=== PATIENT | female | born 1995 | race Caucasian/White ===

== ENCOUNTER 2019-09-10 12:08 | Outpatient (CLI) | payer BC ==
--- NOTE | 2019-09-10 14:21 | RAD ---
LEFT KNEE: 09/10/19 Three views. HISTORY: Knee pain. Joint spaces are preserved. No fracture or osseous abnormality. No joint effusion. IMPRESSION: Unremarkable left knee. POS: [facility]
== END 2019-09-10 12:09 | disposition home or self-care (01) ==
LOC: BICRAD 12:08
PROVIDERS: ATTEND Family Medicine
DX: M25.562 Pain in left knee (principal)

== ENCOUNTER 2020-02-04 06:46 | Outpatient (CLI) | payer OTHER ==
[2020-02-04 15:41] LABS: BHCG - Serum Negative (NEGATIVE); Pregs Control Background? CLEAR/WHITE (CLR/WHITE); Pregs Control Bar Appear? YES (CONTROL BAR)
[2020-02-05 08:27] LABS: SARS-CoV-2 MS2 Positive; SARS-CoV-2 N Gene Negative; SARS-CoV-2 S Gene Negative; SARS-CoV-2 by NAA Not Detected (NotDetected); SARS-CoV-2 orf1ab Negative
== END 2020-02-04 06:47 | disposition home or self-care (01) ==
LOC: LABBT 06:46
PROVIDERS: ATTEND Orthopaedic Surgery
DX: Z01.812 Encounter for preprocedural laboratory examination (principal); Z20.828 Contact with and (suspected) exposure to other viral communicable diseases; M79.89 Other specified soft tissue disorders
CPT/HCPCS: 84703; 87635; U0003

== ENCOUNTER 2020-02-09 06:00 | Day surgery (SDC) | payer OTHER ==
--- NOTE | 2020-02-08 08:56 | HP ---
HISTORY OF PRESENT ILLNESS: The patient is a 24-year-old female with a 1-year history of a gradually increasing mass over the anterior aspect of her left knee without injury. She has persistent symptoms despite rest, restriction of activities, and attempted previous aspiration. PAST MEDICAL HISTORY: The patient is otherwise in good health. She has a history of anxiety, depression, and asthma. CURRENT MEDICATIONS: Include, 1. Albuterol p.r.n. 2. Wellbutrin. 3. control. FAMILY HISTORY: Otherwise unremarkable. SOCIAL HISTORY: Otherwise unremarkable. REVIEW OF SYSTEMS: Otherwise unremarkable. ALLERGIES: SHE HAS NO KNOWN ALLERGIES. PHYSICAL EXAMINATION: GENERAL: Reveals a healthy female. HEENT: Unremarkable. NECK: Supple. CHEST: Clear. HEART: Regular rate and rhythm. ABDOMEN: Soft and nontender. PELVIC: Deferred. RECTAL: Deferred. BREASTS: Deferred. EXTREMITIES: Pertinent findings related to the left knee. There is no effusion, warmth, or erythema. There is a 2 x 1.5 cm nodule over the anterolateral patellar area, which is soft. There is some questionable fluctuance. There is minimal tenderness. There is full range of motion. No crepitus or instability. Neurovascular exam is intact. DIAGNOSTIC STUDIES: X-rays of the left knee are normal. MRI scan of the left knee reveals a circumcised benign-appearing solid heterogeneously enhancing mass in the superficial soft tissues contacting the lateral patellar tendon without evidence of deep extension. IMPRESSIONS: Soft tissue mass, left knee. PLAN: Surgical excision. The nature of the surgery, length of recovery, and potential complications such as infection, loss of motion, incomplete relief, neurovascular injury, thromboembolic phenomena, recurrence, and need for additional treatment, and repeat surgery have been discussed in detail. Job ID: [id number]
[2020-02-08 09:37] VITALS: BMI 26.5
[2020-02-09] MEDS ORDERED: Fentanyl 100 MCG/2 ML VIAL ONE (06:41)
[2020-02-09] MEDS ORDERED: Lidocaine 1% w/Epinephrine 1:100K 20 ML VIAL ONE (07:29)
[2020-02-09] MEDS ORDERED: Bupivacaine PF 0.5% 30 ML VIAL ONE (07:29)
[2020-02-09] MEDS ORDERED: Meperidine HCl/PF 25 MG/ML VIAL ONE (08:19)
--- NOTE | 2020-02-09 09:33 | OP ---
DATE OF PROCEDURE: 02/09/2020 ANESTHESIA: General. PREOPERATIVE DIAGNOSIS: Soft tissue mass, left knee. POSTOPERATIVE DIAGNOSIS: Soft tissue mass, left knee. PROCEDURE PERFORMED: Excision of soft tissue mass, left knee. Pathology pending. OPERATIVE FINDINGS: There was a semi-loculated cystic structure superficial to the patellar tendon. It appeared to be benign and was sent to pathology. DESCRIPTION OF PROCEDURE: After satisfactory anesthesia was induced in a supine position, the patient was prepped and draped in the routine manner. The left leg was elevated and exsanguinated with an Esmarch bandage and the tourniquet inflated to 250 mmHg. A 2.5 cm enlarged incision was made over the mass, carried down through the subcutaneous tissues. Bleeding points were controlled with cautery. Using sharp and blunt dissection, the mass was identified and excised in its entirety. There was a superficial patellar tendon that did not involve the joint. The specimen was sent to pathology. The wound was thoroughly irrigated. A mixture of 30 mL of 0.5% plain Marcaine and 20 mL of 1% lidocaine with epinephrine was prepared and 10 mL of this was injected about the incision. An additional 10 mL was used to irrigate the wound. The subcutaneous tissues were then closed with interrupted 2-0 Monocryl and the skin was closed with running subcuticular 3-0 V-Loc and SurgiSeal skin adhesive. A sterile bulky compressive dressing was applied and the tourniquet deflated after 14 minutes. The foot promptly pinked up. The patient was awakened and taken to the recovery room in stable condition. There were no apparent intraoperative complications. The estimated blood loss was negligible. The patient will be discharged home in satisfactory condition, instructed on ice elevation and given written wound care instructions. She has [place] [facility] at home for pain. She will be rechecked in my office in 10 to 14 days or sooner if there are any problems prior to that time. Job ID: [id number]
[2020-02-09] MEDS ORDERED: PROPOFOL 200 MG/20 ML VIAL ONE (09:58)
[2020-02-09] MEDS ORDERED: Dexamethasone 20 MG/5 ML VIAL ONE (09:58)
[2020-02-09] MEDS ORDERED: Ketorolac Tromethamine 30 MG/ML VIAL ONE (09:58)
[2020-02-09] MEDS ORDERED: Ondansetron PF 4 MG/2 ML Vial ONE (09:58)
--- NOTE | 2020-02-15 12:35 | PQF ---
[facility] POST DISCHARGE CLINICAL DOCUMENTATION IMPROVEMENT CLARIFICATION FORM Todays Date: 02/15/20 Patients Name DELVIS TONG Admit Date 02/09/20 Disch Date 02/09/20 Lead Burner Supervisor Name Karri Magaña Email: [email or web address]: [phone] To be completed by Lead Burner Supervisor: Present Clinical Indicators - Signs / Symptoms Results and Location in Medical Record [ ] Documentation of: [ ] [ ] Documentation of: [ ] [ ] Documentation of: [ ] [ ] Documentation of: [ ] [ ] Risks [ ] [ ] [ ] Treatment [ ] Hemangioma Left knee Query for size w/ margins (cm) of excised left knee soft tissue mass [ ] [ ] To be completed by Physician: HIRAL ROSALES The documentation in this patients record requires clarification to ensure coding compliance and accuracy. Check the appropriate box and include in your discharge summary. [X ] _1 x1 cm superficial mass, down to patellar tendon but exterior to joint capsule, subsequent path revealed hemangioma [ ] [ ] [ ] Please check this box if this does not apply to this patient [ ] Unable to determine [ ] Other diagnosis: Review the following information and exercise your independent professional judgment in responding to the clarification. Based upon the clinical findings, risk factors, and treatment, please clarify if you are treating one of the above probable or suspected diagnoses. Physician Signature: Date Time MTDD
== END 2020-02-09 09:55 | disposition home or self-care (01) ==
LOC: SDC 06:00
PROVIDERS: ATTEND Orthopaedic Surgery
PROC: 0JBP0ZZ Excision of Left Lower Leg Subcutaneous Tissue and Fascia, Open Approach (ICD-10-PCS; principal; 2020-02-09)
DX: D18.09 Hemangioma of other sites (principal); F41.9 Anxiety disorder, unspecified; F32.9 Major depressive disorder, single episode, unspecified; J45.909 Unspecified asthma, uncomplicated; Z79.899 Other long term (current) drug therapy; Z88.5 Allergy status to narcotic agent
CPT/HCPCS: 88307; J0690; J1100; J1885; J2175; J2405; J2704; J3010; S0020